=== PATIENT | male | born 1930 | race Caucasian/White ===

== ENCOUNTER 2017-09-24 10:28 | Emergency (ER) | payer OTHER ==
[~2017-09-24] VITALS: Ht 185.4 cm; Wt 96.0 kg
--- NOTE | ~2017-09-24 | EKG ---
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 SOLITARIO : 1930 Requested By: Jimena Aceves Order Number: [id number] MD: Wenceslao Pulliam Measurements Intervals [place] Rate: 59 P: 18 IA: 167 QRS: 0 QRSD: 89 T: 35 QT: 440 QTc: 436 Interpretive Statements Sinus rhythm Abnormal R-wave progression, early transition Compared to ECG 08/02/2000 16:20:28 No significant changes Electronically Signed On 09-24-2017 14:44:30 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
[~2017-09-24 10:28] MED LIST: ASPIRIN325 PO; COLACE100 MG PO; COUMADIN 2 MG TA2 M1 PO; GLUCOSAMINE CH1 EAC7 PO; HM ACETAMINOPH1 EAC1 PO; LEVITRA; LEVITRA5 MG PO; PERCOCET 5-3251 EACH PO; THERA-M CAPLET1 EACH PO; ZYRTEC10 M2 PO
[2017-09-24 10:45] LABS: BASOPHILS 0.5 % (0.0-2.0); EOSINOPHILS 3.3 % (0.0-3.0); HEMATOCRIT 42.1 % (42.0-52.0); HEMOGLOBIN 14.7 gm/dL (14.0-18.0); LYMPHOCYTES 32.1 % (24.0-44.0); MCH 32.7 pg (26.0-34.0); MCHC 34.9 g/dL (28.0-37.0); MCV 93.6 fL (80.0-100.0); PLATELET COUNT 197 thou/uL (150-400); POLYS 53.1 % (36.0-66.0); RDW 13.1 % (10.5-14.5); WBC 3.8 thou/uL (4.0-11.0)
[2017-09-24 10:54] LABS: ANION GAP 10 mmol/L (7-16); BUN 22 mg/dL (7-18); CHLORIDE 104 mmol/L (98-107); CO2 24 mmol/L (21-32); GLUCOSE 213 mg/dL (74-106); POTASSIUM 3.5 mmol/L (3.5-5.1); SODIUM 138 mmol/L (136-145)
[2017-09-24] MEDS ORDERED: ACETAMINOPHEN500 M1 PO (10:58)
[2017-09-24 11:02] LABS: ALBUMIN 4.2 g/dL (3.4-5.0); SGOT 17 U/L (15-37); SGPT 28 U/L (30-65); TOTAL PROTEIN 7.4 g/dL (6.4-8.2); TROPONIN-I < 0.04 ng/mL (<0.06)
[2017-09-24 12:26] LABS: URINE BILIRUBIN NEGATIVE (Negative); URINE BLOOD NEGATIVE (Negative); URINE CLARITY CLEAR; URINE COLOR YELLOW; URINE GLUCOSE-RANDOM* NEGATIVE (Negative); URINE KETONES NEGATIVE (Negative); URINE LEUKOCYTES NEGATIVE (Negative); URINE NITRITE NEGATIVE (Negative); URINE PROTEIN (DIPSTICK) NEGATIVE (Negative); URINE SPECIFIC GRAVITY >= 1.030 (1.005-1.035); URINE UROBILINOGEN 0.2 E.U./dl (0.2-1.0)
[2017-09-24 12:57] VITALS: BP 132/66
== END 2017-09-24 13:07 | disposition home or self-care (01) ==
LOC: ER 10:28
PROVIDERS: Physician Assistant
DX: R55 Syncope and collapse (principal); Z88.2 Allergy status to sulfonamides

== ENCOUNTER → 2021-01-20 | Outpatient (CLI) | payer OTHER ==
[~2021-01-20] MED LIST changes: +ACETAMINOPHEN500 M1 PO
== END ==
LOC: SJCVC 14:19
PROVIDERS: ATTEND Internal Medicine Cardiovascular Disease
DX: I49.9 Cardiac arrhythmia, unspecified (principal); R55 Syncope and collapse; Z88.2 Allergy status to sulfonamides; Z79.899 Other long term (current) drug therapy; Z85.46 Personal history of malignant neoplasm of prostate; Z86.73 Personal history of transient ischemic attack (TIA), and cerebral infarction without residual deficits; Z82.49 Family history of ischemic heart disease and other diseases of the circulatory system

== ENCOUNTER → 2021-01-22 | Outpatient (CLI) | payer OTHER ==
--- NOTE | ~2021-01-22 | P ---
[facility] [place] [address] PROCEDURE REPORT Name: ARMINDA BAEZA Room #: [facility]#: [id number] Admission: 01/22/21 Attend Phys: Gama Ashraf MD Discharge: Date of : 32 Report #: [id number] THIS REPORT FOR: cc: Chetan Miranda MD, Mark S. MD Couchonnal, Luis F. MD ~ DOC #: [id number] Gama Ashraf MD DATE OF SERVICE: 01/22/2021 PREOPERATIVE DIAGNOSIS: Syncope. POSTOPERATIVE DIAGNOSIS: Syncope. PROCEDURE PERFORMED: Implantable loop recorder insertion. DESCRIPTION OF PROCEDURE: The patient underwent informed consent. He was prepped and draped in a standard fashion. I injected lidocaine at the incision site. Incision was made. Device injected and tested and found to be functioning normally. A single suture was performed. Dressing was placed. The patient awoke neurologically and hemodynamically intact. Implanted loop device was a [employer] LINQ, serial number [id number]. CONCLUSION: Successful implantation of a loop recorder. MD DARIO Trimble/KDA By: 0913 09 Gama Ashraf MD /nt
[2021-01-22 12:02] VITALS: BP 125/61
== END | disposition home or self-care (01) ==
LOC: CATH 07:09
PROVIDERS: ATTEND Internal Medicine Cardiovascular Disease
DX: R55 Syncope and collapse (principal); Z98.890 Other specified postprocedural states; Z79.899 Other long term (current) drug therapy; Z88.2 Allergy status to sulfonamides